=== PATIENT | female | born 1980 | race African-American/Black ===

== ENCOUNTER 2025-01-19 10:37 | Emergency (ER) | payer OTHER ==
[~2025-01-19] VITALS: Ht 170.2 cm; Wt 60.0 kg
[2025-01-19 10:39] VITALS: O2SAT 100
[2025-01-19 10:55] VITALS: BP 108/62; PULSE 74; RESP 14; TEMP 37.7; O2SAT 100
[2025-01-19 11:06] LABS: BASOPHILS % 0.3 % (0.0-2.0); EOSINOPHILS % 0.5 % (0.0-5.0); HEMATOCRIT. 39.7 % (36.0-48.0); HEMOGLOBIN. 13.1 g/dL (12.0-16.0); MEAN CORPUSCULAR HEMOGLOBIN 29.1 pg (28.0-32.0); MEAN CORPUSCULAR VOLUME 88.1 fL (81.0-99.0); MEAN PLATELET VOLUME 8.3 fl (7.4-10.4); MONOCYTES % 11.8 % (2.0-8.0); NEUTROPHILS % 58.4 % (40.0-76.0); PLATELET 202 x1000/uL (130-400); RED CELL DISTRIBUTION WIDTH 13.4 % (11.6-14.6); WHITE BLOOD COUNT 6.2 x1000/uL (4.5-11.0)
[2025-01-19 11:17] LABS: CHLORIDE 104 mEq/L (98-107); POTASSIUM 4.1 mEq/L (3.5-5.1); SODIUM 139 mEq/L (136-145)
[2025-01-19] MEDS: ACETAMINOPHEN 325MG TABLET PO ONE (11:17)
[2025-01-19 11:18] LABS: CALCIUM 10.4 mg/dL (8.7-10.4); CARBON DIOXIDE 29 mEq/L (21-32)
[2025-01-19 11:23] LABS: CREATININE 0.9 mg/dL (0.6-1.0); GLUCOSE 91 mg/dL (70-105); UREA NITROGEN BLOOD 10 mg/dL (9-23)
[2025-01-19 11:25] LABS: ALANINE AMINOTRANSFERASE 11 IU/L (10-49); ALBUMIN 4.4 g/dL (3.2-4.8); ASPARTATE AMINOTRANSFERASE 14 IU/L (<34); BILIRUBIN DIRECT 0.3 mg/dL (<=3.0); BILIRUBIN TOTAL 0.9 mg/dL (0.1-1.0); PROTEIN TOTAL 7.3 g/dL (6.0-8.3)
[2025-01-19 11:48] LABS: UCG SCREEN NEGATIVE
[2025-01-19 11:49] LABS: CLARITY URINE CLEAR (CLEAR); COLOR URINE YELLOW (YELLOW); GLUCOSE URINE NEGATIVE (NEGATIVE); KETONES URINE TRACE (NEGATIVE); LEUKOCYTE ESTERASE URINE TRACE (NEGATIVE); NITRITE URINE NEGATIVE (NEGATIVE); OCCULT BLOOD URINE NEGATIVE (NEGATIVE); PROTEIN URINE TRACE (NEGATIVE); SPECIFIC GRAVITY URINE 1.017 (1.005-1.030)
[2025-01-19 12:15] LABS: RBC URINE 0-2 /hpf (0-2); SQUAMOUS EPITHELIAL CELL URINE 2+ /lpf (RARE/1+)
[2025-01-19 12:16] LABS: AMORPHOUS SEDIMENT URINE 1+ /lpf; BACTERIA URINE 2+
== END 2025-01-19 11:40 | disposition left against medical advice (07) ==
LOC: ER 10:37
DX: N39.0 Urinary tract infection, site not specified (principal); F12.90 Cannabis use, unspecified, uncomplicated
CPT/HCPCS: 36415; 80048; 80076; 81003; 81025; 85025; 86850; 86900; 99283